=== PATIENT | female | born 1940 | race Caucasian/White ===

== ENCOUNTER 2020-03-11 22:12 | Inpatient (IN) | payer MEDICARE, SELFPAY ==
--- NOTE | 2020-03-11 22:13 | XR_ITS ---
WS: [id number] PORTABLE CHEST HISTORY: sob COMPARISON: 09/22/2018 Minimal interstitial thickening at the LEFT lung base. There is an adjacent lobulated calcification a long the LEFT diaphragmatic surface. No pneumonia. Normal vasculature. No pleural effusion or pneumot horax. Cardiac size: Mildly enlarged cardiac silhouette. Mediastinum/Aorta: Normal mediastinum. No osseous abnormality seen. XR/XR chest 1V portable [id number] IMPRESSION: No acute cardiopulmonary disease. No pneumonia.
[2020-03-11 22:23] VITALS: BP 162/73; PULSE 80; RESP 19; TEMP 37.1; O2SAT 96; BMI 28.3
--- NOTE | 2020-03-11 22:36 | W.ED.COVID ---
HPI - COVID General: Chief Complaint: COVID symptoms Stated Complaint: covid symptoms Time Seen by Provider: 03/11/20 22:13 Triage information: Has fever, cough or shortness of breath. Exposure to COVID + person last 14 days History of Present Illness: HPI Narrative: 79-year-old female patient presents via EMS due to weakness. Spouse confirmed Covid positive several days ago. She reports onset of Covid symptoms x3 days. Reports nausea vomiting, cough congestion and fever, highest was 101.3. States Tylenol does help reduce fever. She reports she can no longer take care of herself and her . MD complaint: reported COVID exposure Prior covid testing: yes, results known (negative 8 days ago) Prior testing date: 03/03/20 COVID 19 common symptoms: positive fever(s), chills, cough, productive cough, dyspnea, fatigue, body aches, nasal congestion, nausea, vomiting and diarrhea; negative headache(s) COVID 19 other sytmptoms: negative chest pain Onset (ago): day(s) (3) Severity: moderate and rapidly worsening Treatment prior to arrival: acetaminophen and ibuprofen COVID Results: SARS-CoV-2 Antigen (Rapid) Positive (Negative) H 03/11/20 23:00 03/11/20 Review of Systems General: Reports: 10 or more systems reviewed and unremarkable except in HPI and below Const: Reports: fever(s), chills, body aches, change in appetite, fatigue and malaise Eyes: Denies: change in vision, blurry vision, eye discomfort, eye redness or yellow eyes ENMT: Reports: nasal discharge, nasal congestion, nasal obstruction and post nasal drip; Denies: uvular edema, hoarseness or halitosis Card: Reports: lightheadedness and dyspnea on exertion; Denies: chest pain, palpitations, irregular heart rhythm, edema or swelling of feet/ankles Resp: Reports: dyspnea, productive cough and chest congestion GI: Reports: nausea, vomiting and diarrhea; Denies: abdominal pain, constipation, GI cramping or pain on defecation : Denies: difficulty voiding, dysuria, urinary urgency or urinary incontinence Musc: Reports: muscle weakness; Denies: neck pain or back pain Skin/Breast: Denies: rash, pruritus, erythema or changing lesions Neuro: Reports: difficulty walking; Denies: headache(s), weakness in extremities or behavioral changes Psych: Denies: anxiety or depression Kamran/Lymph: Denies: easy bruising PFSH ED PFSH: Medical History No pertinent past medical history Surgical History H/O knee surgery H/O: hysterectomy S/P cholecystectomy S/P tonsillectomy Family History (Updated 03/12/20 @ 04:33 by Ab Westbrook MD) Other Family history non-contributory Social History Smoking and tobacco status: never smoked Alcohol intake: never Substance/Drug Use: never Household members: spouse Housing: House Physical Exam Const: COMMON NORMALS: average body habitus, patient oriented x3, no limitations, alert and well nourished EXAM LIMITATIONS: other limitations (ill appearing) GENERAL APPEARANCE: cooperative, well kempt, well developed, lethargic, ill appearing and well hydrated; not comfortable, not in distress, not anxious and not frail appearing NUTRITIONAL APPEARANCE: thin ORIENTATION/CONSCIOUSNESS: Yes awake, Yes oriented to person, Yes oriented to place, Yes oriented to time and Yes lethargic HENMT: COMMON NORMALS: normocephalic, atraumatic, hearing grossly normal bilaterally, Normal external nose present and Normal nasal mucous membranes and turbinates present HEAD & SCALP: normal to inspection, normocephalic and atraumatic FACE & SINUS: normal facial exam, sinuses nontender and face symmetric NOSE: Normal external nose present and Normal nasal mucous membranes and turbinates present MOUTH: moist mucous membranes abnormal Details: cracked THROAT: uvula midline; no uvular edema Eye: COMMON NORMALS: Equal, round and reactive pupils present, EOMs intact bilaterally and conjunctivae normal GENERAL EYE: appearance normal, both eyes and all related structures ALIGNMENT: Yes alignment normal EYELID: eyelids normal CONJUNCTIVA: Yes conjunctivae normal PUPIL: Yes Equal, round and reactive pupils present Neck/C-Spine: COMMON NORMALS: full ROM and no lymphadenopathy GENERAL: Yes normal visual inspection and Yes trachea midline CERVICAL SPINE: Yes cervical ROM normal Lymph: LYMPHATIC: no lymphadenopathy noted Chest: COMMONS NORMALS: normal inspection of the chest and normal palpation of entire chest wall Resp: COMMON NORMALS: normal respiratory effort and No use of accessory muscles EFFORT & INSPECTION: Yes able to speak in complete sentences and No paradoxical thoraco-abdominal movements AUSCULTATION: rhonchi, wheezes and diminished lung sounds Cardio: COMMON NORMALS: regular rate, regular rhythm, S1 normal heart sound present, S2 normal heart sound present and Peripheral pulses 2+ throughout RATE: regular rate RHYTHM: regular rhythm HEART SOUNDS: S1 normal heart sound present and S2 normal heart sound present PERIPHERAL PULSES: Peripheral pulses 2+ throughout GI: COMMON NORMALS: Normal to inspection, nondistended, normoactive bowel sounds present, Soft to palpation and non-tender INSPECTION: Yes normal to inspection PALPATION: Yes Soft to palpation : COMMON NORMALS: Yes no CVA tenderness BLADDER/KIDNEY EXAM: Yes no CVA tenderness Back/Pelvis: COMMON NORMALS: no CVA tenderness, thoracic and lumbar spine normal to inspection, no thoracic nor lumbar tenderness and thoraco-lumbar ROM normal Extremity: COMMON NORMALS: normal to inspection and capillary refill normal Neuro: COMMON NORMALS: patient oriented x3 and no focal motor deficits SENSORIUM/ORIENTATION: Yes alert, Yes oriented to person, Yes oriented to place, Yes oriented to time and Yes lethargic Psych: COMMON NORMALS: mental status grossly normal, Normal thought process present and cooperative APPEARANCE: Yes well kempt ACTIVITY/MOTOR BEHAVIOR: Yes appropriate eye contact THOUGHT PROCESS: Normal thought process present Skin: COMMON NORMALS: no rashes or lesions noted and turgor normal GENERAL SKIN EXAM: no rashes or lesions noted and turgor normal Course ED course: 79-year-old female patient presents to the emergency department with Covid symptoms x3 days. Her spouse is tested positive and is also here in the ED for evaluation as well. She reports has become so weak she can no longer take care of herself or her spouse. States contact of illness from the daughter who tested positive. O2 saturation 90 to 92% on room air here in the ED. She continues to express weakness and continued not feeling well. She is received a liter of normal saline here in the ED. D-dimer slightly elevated and CTA chest currently pending. Spoke with Dr. Westbrook who agrees to care for patient as hospitalist role. Case discussed with Dr. Crain. No further orders. Consultations: Consultation #1: Dr Westbrook, history of present illness and serology, radiology results discussed. Agrees for hospitalist care as patient will need strengthening and hydration due to Covid illness. Time: 03:40 Vital Signs: Vital signs: Vital Signs Temperature 98.1 F 03/15/20 13:47 Pulse Rate 59 L 03/15/20 14:00 Respiratory Rate 23 H 03/15/20 14:00 Blood Pressure 123/61 03/15/20 14:00 Pulse Oximetry 93 03/15/20 14:00 MDM - COVID Lab Data: Labs: Lab Results 03/11/20 03/11/20 03/11/20 Range/Units 00:05 00:05 01:15 WBC 6.8 (4.0-10.0) 10^3/ uL RBC 4.67 (4.1-5.3) 10^6/u L Hgb 13.2 (11.5-15.3) g/dL Hct 41.8 (37.0-47.0) % MCV 89.5 (81-99) fL MCH 28.3 (28.0-34.0) pg MCHC 31.6 (30.0-36.0) g/dL RDW 13.3 (12.1-15.1) % Plt Count 177 (130-400) 10^3/c mm MPV 9.2 (7.4-10.4) fL Neut % (Auto) 79.6 % Lymph % (Auto) 17.1 % [place] % (Auto) 2.9 % Eos % (Auto) 0.0 % Baso % (Auto) 0.1 % Neut # (Auto) 5.44 (1.8-7.7) 10^3/u L Lymph # (Auto) 1.2 (0.8-4.8) 10^3/u L [place] # (Auto) 0.2 (0.2-0.9) 10^3/u L Eos # (Auto) 0.0 (0.0-0.8) 10^3/u L Baso # (Auto) 0.0 (0.0-0.1) 10^3/u L Nucleated RBC % (a uto) 0 % Nucleated RBCs # 0.0 /100WBC Fibrinogen 430 (174-498) mg/dL D-Dimer 0.99 H (0-0.59) ug/mIFE U Specimen Type Sample Site ABG pH (7.35-7.45) ABG pCO2 (35-45) mmHg ABG pO2 (80.0-100.0) mmH g ABG HCO3 (22-26) mmol/L ABG Base Excess (-2.0-2.0) mmol/ L Jean Test Hematocrit (37-47) % O2 Delivery Device O2 Liters/Min % FiO2 % Sales Support Coordinator ID Sodium 131 L (136-145) mmol/L Potassium 3.9 (3.5-5.1) mmol/L Chloride 96 L (98-107) mmol/L Carbon Dioxide 26 (22-29) mmol/L Anion Gap 12.9 (5-19) BUN 12 (8-23) mg/dL Creatinine 0.7 (0.5-0.9) mg/dL GFR Calculation Not Reportable Glucose 120 H (65-115) mg/dL Calculated Osmolal ity 273 L (285-295) mOsm/k g Lactic Acid (0.5-2.2) mmol/L Calcium 8.3 L (8.5-10.5) mg/dL Total Bilirubin 0.2 (0.15-1.2) mg/dL AST 17 (0-32) U/L ALT 12 (0-33) U/L Alkaline Phosphata se 60 (35-105) IU/L C-Reactive Protein 9.4 H (0.0-4.9) mg/L NT-Pro-B Natriuret Pep 77 (0-450) pg/mL Total Protein 6.6 (6.6-8.7) g/dL Albumin 3.6 (3.5-5.2) g/dL Globulin 3.0 (1.3-4.6) g/dL Procalcitonin (0-0.5) ng/mL Urine Color (Yellow) Urine Appearance (CLEAR) Urine pH (5-7) Ur Specific Gravit y (1.005-1.030) Urine Protein (Negative) Urine Glucose (UA) (Normal) Urine Ketones (Negative) Urine Blood (Negative) Urine Nitrate (Negative) Urine Bilirubin (Negative) Urine Urobilinogen (Negative) mg/dL Ur Leukocyte Sophie ase (Negative) SARS-CoV-2 Ag (Rap id) (Negative) 03/11/20 03/11/20 03/11/20 Range/Units 01:15 22:13 22:39 WBC (4.0-10.0) 10^3/ uL RBC (4.1-5.3) 10^6/u L Hgb (11.5-15.3) g/dL Hct (37.0-47.0) % MCV (81-99) fL MCH (28.0-34.0) pg MCHC (30.0-36.0) g/dL RDW (12.1-15.1) % Plt Count (130-400) 10^3/c mm MPV (7.4-10.4) fL Neut % (Auto) % Lymph % (Auto) % [place] % (Auto) % Eos % (Auto) % Baso % (Auto) % Neut # (Auto) (1.8-7.7) 10^3/u L Lymph # (Auto) (0.8-4.8) 10^3/u L [place] # (Auto) (0.2-0.9) 10^3/u L Eos # (Auto) (0.0-0.8) 10^3/u L Baso # (Auto) (0.0-0.1) 10^3/u L Nucleated RBC % (a uto) % Nucleated RBCs # /100WBC Fibrinogen (174-498) mg/dL D-Dimer (0-0.59) ug/mIFE U Specimen Type Arterial Sample Site Brachial, right ABG pH 7.44 (7.35-7.45) ABG pCO2 40.3 (35-45) mmHg ABG pO2 61.7 L (80.0-100.0) mmH g ABG HCO3 27.2 H (22-26) mmol/L ABG Base Excess 2.8 H (-2.0-2.0) mmol/ L Jean Test N/a Hematocrit 40.2 (37-47) % O2 Delivery Device Nc O2 Liters/Min 2.0 % FiO2 28.0 % Sales Support Coordinator ID Jlg Sodium (136-145) mmol/L Potassium (3.5-5.1) mmol/L Chloride (98-107) mmol/L Carbon Dioxide (22-29) mmol/L Anion Gap (5-19) BUN (8-23) mg/dL Creatinine (0.5-0.9) mg/dL GFR Calculation Glucose (65-115) mg/dL Calculated Osmolal ity (285-295) mOsm/k g Lactic Acid 0.9 (0.5-2.2) mmol/L Calcium (8.5-10.5) mg/dL Total Bilirubin (0.15-1.2) mg/dL AST (0-32) U/L ALT (0-33) U/L Alkaline Phosphata se (35-105) IU/L C-Reactive Protein (0.0-4.9) mg/L NT-Pro-B Natriuret Pep (0-450) pg/mL Total Protein (6.6-8.7) g/dL Albumin (3.5-5.2) g/dL Globulin (1.3-4.6) g/dL Procalcitonin (0-0.5) ng/mL Urine Color (Yellow) Urine Appearance (CLEAR) Urine pH (5-7) Ur Specific Gravit y (1.005-1.030) Urine Protein (Negative) Urine Glucose (UA) (Normal) Urine Ketones (Negative) Urine Blood (Negative) Urine Nitrate (Negative) Urine Bilirubin (Negative) Urine Urobilinogen (Negative) mg/dL Ur Leukocyte Sophie ase (Negative) SARS-CoV-2 Ag (Rap id) (Negative) 03/11/20 03/12/20 03/12/20 Range/Units 23:00 01:15 03:41 WBC (4.0-10.0) 10^3/ uL RBC (4.1-5.3) 10^6/u L Hgb (11.5-15.3) g/dL Hct (37.0-47.0) % MCV (81-99) fL MCH (28.0-34.0) pg MCHC (30.0-36.0) g/dL RDW (12.1-15.1) % Plt Count (130-400) 10^3/c mm MPV (7.4-10.4) fL Neut % (Auto) % Lymph % (Auto) % [place] % (Auto) % Eos % (Auto) % Baso % (Auto) % Neut # (Auto) (1.8-7.7) 10^3/u L Lymph # (Auto) (0.8-4.8) 10^3/u L [place] # (Auto) (0.2-0.9) 10^3/u L Eos # (Auto) (0.0-0.8) 10^3/u L Baso # (Auto) (0.0-0.1) 10^3/u L Nucleated RBC % (a uto) % Nucleated RBCs # /100WBC Fibrinogen (174-498) mg/dL D-Dimer (0-0.59) ug/mIFE U Specimen Type Sample Site ABG pH (7.35-7.45) ABG pCO2 (35-45) mmHg ABG pO2 (80.0-100.0) mmH g ABG HCO3 (22-26) mmol/L ABG Base Excess (-2.0-2.0) mmol/ L Jean Test Hematocrit (37-47) % O2 Delivery Device O2 Liters/Min % FiO2 % Sales Support Coordinator ID Sodium (136-145) mmol/L Potassium (3.5-5.1) mmol/L Chloride (98-107) mmol/L Carbon Dioxide (22-29) mmol/L Anion Gap (5-19) BUN (8-23) mg/dL Creatinine (0.5-0.9) mg/dL GFR Calculation Glucose (65-115) mg/dL Calculated Osmolal ity (285-295) mOsm/k g Lactic Acid (0.5-2.2) mmol/L Calcium (8.5-10.5) mg/dL Total Bilirubin (0.15-1.2) mg/dL AST (0-32) U/L ALT (0-33) U/L Alkaline Phosphata se (35-105) IU/L C-Reactive Protein (0.0-4.9) mg/L NT-Pro-B Natriuret Pep (0-450) pg/mL Total Protein (6.6-8.7) g/dL Albumin (3.5-5.2) g/dL Globulin (1.3-4.6) g/dL Procalcitonin 0.07 (0-0.5) ng/mL Urine Color Yellow (Yellow) Urine Appearance Clear (CLEAR) Urine pH 5 (5-7) Ur Specific Gravit y 1.015 (1.005-1.030) Urine Protein Neg (Negative) Urine Glucose (UA) Norm (Normal) Urine Ketones 1+ H (Negative) Urine Blood Neg (Negative) Urine Nitrate Negative (Negative) Urine Bilirubin Neg (Negative) Urine Urobilinogen Norm (Negative) mg/dL Ur Leukocyte Sophie ase Negative (Negative) SARS-CoV-2 Ag (Rap id) Positive H (Negative) 03/13/20 Range/Units 03:45 WBC (4.0-10.0) 10^3/ uL RBC (4.1-5.3) 10^6/u L Hgb (11.5-15.3) g/dL Hct (37.0-47.0) % MCV (81-99) fL MCH (28.0-34.0) pg MCHC (30.0-36.0) g/dL RDW (12.1-15.1) % Plt Count (130-400) 10^3/c mm MPV (7.4-10.4) fL Neut % (Auto) % Lymph % (Auto) % [place] % (Auto) % Eos % (Auto) % Baso % (Auto) % Neut # (Auto) (1.8-7.7) 10^3/u L Lymph # (Auto) (0.8-4.8) 10^3/u L [place] # (Auto) (0.2-0.9) 10^3/u L Eos # (Auto) (0.0-0.8) 10^3/u L Baso # (Auto) (0.0-0.1) 10^3/u L Nucleated RBC % (a uto) % Nucleated RBCs # /100WBC Fibrinogen (174-498) mg/dL D-Dimer (0-0.59) ug/mIFE U Specimen Type Sample Site ABG pH (7.35-7.45) ABG pCO2 (35-45) mmHg ABG pO2 (80.0-100.0) mmH g ABG HCO3 (22-26) mmol/L ABG Base Excess (-2.0-2.0) mmol/ L Jean Test Hematocrit (37-47) % O2 Delivery Device O2 Liters/Min % FiO2 % Sales Support Coordinator ID Sodium (136-145) mmol/L Potassium (3.5-5.1) mmol/L Chloride (98-107) mmol/L Carbon Dioxide (22-29) mmol/L Anion Gap (5-19) BUN (8-23) mg/dL Creatinine (0.5-0.9) mg/dL GFR Calculation Glucose (65-115) mg/dL Calculated Osmolal ity (285-295) mOsm/k g Lactic Acid (0.5-2.2) mmol/L Calcium (8.5-10.5) mg/dL Total Bilirubin (0.15-1.2) mg/dL AST (0-32) U/L ALT (0-33) U/L Alkaline Phosphata se (35-105) IU/L C-Reactive Protein 11.3 H (0.0-4.9) mg/L NT-Pro-B Natriuret Pep (0-450) pg/mL Total Protein (6.6-8.7) g/dL Albumin (3.5-5.2) g/dL Globulin (1.3-4.6) g/dL Procalcitonin (0-0.5) ng/mL Urine Color (Yellow) Urine Appearance (CLEAR) Urine pH (5-7) Ur Specific Gravit y (1.005-1.030) Urine Protein (Negative) Urine Glucose (UA) (Normal) Urine Ketones (Negative) Urine Blood (Negative) Urine Nitrate (Negative) Urine Bilirubin (Negative) Urine Urobilinogen (Negative) mg/dL Ur Leukocyte Sophie ase (Negative) SARS-CoV-2 Ag (Rap id) (Negative) COVID Results: SARS-CoV-2 Antigen (Rapid) Positive (Negative) H 03/11/20 23:00 03/11/20 Discharge Plan Discharge Admit Provider: Ab Westbrook Condition: Stable Discharge Orders: Discharge Order (Routine); Ordered 03/15/20 Ordered By: Yogi Bledsoe Discharge Diet: Usual diet Discharge Activity: Increase activity as tolerated Coding Level of Care Code ED Bearingizer for Chg Fwd Exam Comprehensive
[2020-03-11] MEDS: ondansetron 2 mg/ML SDV 2 mL 4 MG IVP (22:41)
[2020-03-11] MEDS: sodium chloride 0.9% 500 ML 999 ML IV (22:41)
[2020-03-11 22:49] LABS: ABG PCO2 40.3 mmHg (35-45); ABG PH Result 7.44 (7.35-7.45); Arterial Blood Gas Hematocrit 40.2 % (37-47); Base Excess ABG 2.8 mmol/L (-2.0-2.0); Blood Gas Sample Site Brachial, right; Blood Gas Sample Type Arterial; HCO3 ABG 27.2 mmol/L (22-26); Oxygen Device NC; PO2 ABG 61.7 mmHg (80.0-100.0)
--- NOTE | 2020-03-11 22:51 | ECG_ITS ---
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 Measurements Intervals [place] Rate: 79 P: 22 MA: 181 QRS: -31 QRSD: 97 T: 65 QT: 373 QTc: 429 Interpretive Statements SINUS RHYTHM MARKED LEFT AXIS DEVIATION [QRS AXIS < -30] LOW QRS VOLTAGE IN PRECORDIAL LEADS [QRS DEFLECTION < 1.0 mV IN CHEST LEADS] POSSIBLE ANTERIOR MYOCARDIAL INFARCTION [30 ms Q WAVE IN V3/V4, OR R < 0.2 mV IN V4], OF INDETERMINATE AGE Compared to ECG 09/22/2018 11:50:36 Left-axis deviation now present Low QRS voltage now present Myocardial infarct finding now present First degree AV block no longer present Electronically Signed On 03-12-2020 22:52:39 WIRE PULLER by Gladys Edouard M.D. [id number]
[2020-03-11 23:04] VITALS: O2SAT 94
[2020-03-11 23:37] VITALS: BP 172/67; PULSE 80; RESP 18; O2SAT 93
[2020-03-11 23:54] LABS: SARS Covid-2 Antigen Positive (Negative)
[2020-03-12] VITALS (111 sets, daily range): BP systolic 113–167; BP diastolic 45–69; PULSE 61–90; RESP 13–29; TEMP 36.2–37.2; O2SAT 88–98
[2020-03-12 01:27] LABS: Basophils % 0.1 %; Hematocrit 41.8 % (37.0-47.0); Hemoglobin 13.2 g/dL (11.5-15.3); Lymphocytes # 1.2 10^3/uL (0.8-4.8); Lymphocytes % 17.1 %; Mean Corpuscular HGB Conc 31.6 g/dL (30.0-36.0); Mean Corpuscular Hemoglobin 28.3 pg (28.0-34.0); Mean Corpuscular Volume 89.5 fL (81-99); Mean Platelet Volume 9.2 fL (7.4-10.4); Monocytes # 0.2 10^3/uL (0.2-0.9); Monocytes % 2.9 %; Neutrophils # 5.44 10^3/uL (1.8-7.7); Neutrophils % 79.6 %; Nucleated Red Blood Cells % 0 %; Platelet Count 177 10^3/cmm (130-400); Red Blood Count 4.67 10^6/uL (4.1-5.3); Red Cell Distribution Width 13.3 % (12.1-15.1); White Blood Count 6.8 10^3/uL (4.0-10.0)
[2020-03-12 01:56] LABS: Lactic Sepsis W/Reflex 0.9 mmol/L (0.5-2.2)
[2020-03-12 02:05] LABS: Alanine Aminotransferase 12 U/L (0-33); Albumin Level 3.6 g/dL (3.5-5.2); Alkaline Phosphatase 60 IU/L (35-105); Aspartate Amino Transferase 17 U/L (0-32); Blood Urea Nitrogen 12 mg/dL (8-23); C Reactive Protein 9.4 mg/L (0.0-4.9); Calcium 8.3 mg/dL (8.5-10.5); Carbon Dioxide 26 mmol/L (22-29); Chloride 96 mmol/L (98-107); Glucose 120 mg/dL (65-115); NT Pro B Type Natriuretic Pept 77 pg/mL (0-450); Osmolality Calculated 273 mOsm/kg (285-295); Sodium 131 mmol/L (136-145); Total Bilirubin 0.2 mg/dL (0.15-1.2); Total Protein 6.6 g/dL (6.6-8.7)
[2020-03-12 02:07] LABS: Anion Gap 12.9 (5-19); Potassium 3.9 mmol/L (3.5-5.1)
[2020-03-12] MEDS: acetaminophen 500 mg Tablet 1000 MG PO (02:33)
[2020-03-12 02:35] LABS: Slide Review Slide Review Perform
[2020-03-12] MEDS: sodium chloride 0.9% 500 ML 999 ML IV (02:43)
[2020-03-12 03:35] LABS: D Dimer 0.99 ug/mIFEU (0-0.59)
--- NOTE | 2020-03-12 03:39 | CTR_ITS ---
PROCEDURE INFORMATION: Exam: CT Angiography Chest With Contrast Exam date and time: 03/12/2020 3:53 AM Age: 79 years old Clinical indication: Abnormal findings; Abnormal diagnostic tests; Elevated d-dimer; Patient HX: Elevated d dimer. Covid +; Additional info: Covid - elevated d dimer TECHNIQUE: Imaging protocol: Computed tomographic angiography of the chest with intravenous contrast. 3D rendering (Not supervised by radiologist): MIP and/or 3D reconstructed images were created by the technologist. Radiation optimization: All CT scans at this facility use at least one of these dose optimization techniques: automated exposure control; mA and/or kV adjustment per patient size (includes targeted exams where dose is matched to clinical indication); or iterative reconstruction. Contrast material: OMNI 350; Contrast volume: 95 ml; Contrast route: INTRAVENOUS (IV); COMPARISON: CR XR chest 1V portable [id number] 03/11/2020 10:19 PM RADIATION DOSE METRICS: Total DLP (mGy-cm): 1045 FINDINGS: Pulmonary arteries: Normal. No pulmonary emboli. Aorta: Unremarkable. No aortic aneurysm. No aortic dissection. Lungs: Bilateral scattered ground-glass infiltrates are present. A tiny 0 point 4 cm nodule is seen in the right lower lobe image 33.5. Pleural space: Unremarkable. No pneumothorax. No pleural effusion. Heart: Unremarkable. No cardiomegaly. No pericardial effusion. Lymph nodes: Bilateral prominent hilar lymph nodes are seen most likely reactive. Bones/joints: Unremarkable. No acute fracture. Soft tissues: Unremarkable. CT/CT angio chest PE protcl [id number] IMPRESSION: 1. Negative for pulmonary embolism. Negative for aortic aneurysm or dissection. 2. Bilateral scattered ground-glass infiltrates are seen. COVID-19 testing and follow-up is suggested. 3. Bilateral hilar prominent lymph nodes most likely reactive. 4. A tiny nodule in the right lower lobe as described. 5. For patients at low risk (minimal or absent history of smoking and of other known risk factors), no routine follow-up is indicated. For patients at high risk (history of smoking or of other known risk factors), consider optional CT Chest at 12 months. (Reference: Carolyn) REFERENCES: Carolyn Romero et al. Guidelines for Management of Incidental Pulmonary Nodules Detected on CT Images: From the Fleischner Society 2017. Radiology. 2017;284(1):228-243. Radiation Dose CTDIVOL = (mGy): DLP = 1045 (mGy-cm)
[2020-03-12 03:55] LABS: Add Urine Microscopic? NO
--- NOTE | 2020-03-12 03:57 | P.HP_ITS ---
Providers/Chief Complaint Primary Care Provider: Franco Kaminski MD Chief Complaint: covid symptoms History of Present Illness Jewell Villalta is a 79 year old female without significant past medical history came in with chief complaint of worsening weakness. Patient is stating that her symptoms started 1 week ago when her tested positive with COVID-19 pneumonia. She has been experiencing diarrhea, low-grade fever 99.1, she also experienced 1-2 episodes of emesis today. She is feeling extremely tired and lethargic not able to care for herself or her asked why she is in the hospital. EMS brought her on 2 L nasal cannula but she has been saturating well on room air. Afebrile, high D-dimer, CT has been requested, mildly high CRP, CBC BMP unremarkable, Covid antigen positive. Review of Systems Const: Reports: chills, body aches, change in weight, fatigue and malaise; Denies: fever(s) Eyes: Denies: change in vision ENMT: Denies: throat pain Card: Denies: chest pain Resp: Denies: dyspnea GI: Denies: abdominal pain : Denies: flank pain or urinary frequency Musc: Denies: neck pain Skin/Breast: Denies: rash Neuro: Denies: headache(s) Psych: Denies: anxiety Endo: Denies: polyuria Kamran/Lymph: Denies: easy bruising All/Imm: Denies: urticaria Medications/Allergies Allergies Allergy/AdvReac Type Severity Reaction Status Date / Time No Known Allergies Allergy Verified 03/11/20 22:29 PFSH Acute PFSH: Medical History No pertinent past medical history Surgical History H/O knee surgery H/O: hysterectomy S/P cholecystectomy S/P tonsillectomy Family History (Updated 03/12/20 @ 04:33 by Ab Westbrook MD) Other Family history non-contributory Social History Smoking and tobacco status: never smoked Alcohol intake: never Substance/Drug Use: never Household members: spouse Housing: House Vitals/I&O/Wt Last Vital Signs Temp 98.7 F 12/16/20 22:23 Pulse 67 03/12/20 03:40 Resp 15 03/12/20 03:40 BP 133/58 03/12/20 03:40 Pulse Ox 92 03/12/20 03:40 03/11/20 03/11/20 03/12/20 14:59 22:59 06:59 Intake Total 1000 / 1000 Balance 1000 / 1000 Weight last 48 hrs Weight 72.575 kg Physical Exam Narrative: EXAM NARRATIVE: elderly female currently saturating well on room air Very lethargic and drowsy Patient just came back from CTA Not endorsing any active chest pain or shortness of breath S1, S2 no murmur appreciated no signs of heart failure Abdomen soft nontender bowel sound present No acute respiratory distress bilateral breath sounds without adventitious rhonchi or crackles No neurological deficit EOMI, PERRLA Awake alert oriented x3 No lower extremity edema gangrene or ulcer Data : 03/11/20 00:05 03/11/20 00:05 Micro: Microbiology 03/11/20 01:15 Blood Culture - Preliminary Blood SPECIMEN COLLECTED 03/11/20 00:45 Blood Culture - Preliminary Blood SPECIMEN COLLECTED A&P Assessment and plan (1) Generalized weakness: Status: Acute (2) COVID-19: Status: Acute Additional A&P Information COVID-19 pneumonia Worsening weakness, afebrile, no signs of sepsis, no signs of consolidation or superimposed infection, high D-dimer, requested CTA Currently saturating well on room air I would not start remdesivir at this point, no signs of cytokine storm, would only use Decadron Monitor inflammatory markers, PT evaluation before discharge, home O2 evaluation before discharge Patient is full code Cardiac diet DVT prophylaxis Lovenox No need of repeating CBC BMP previous blood work was unremarkable Attestations Medical Necessity Statement*: Anticipating discharge in less than 48 hours continued overnight monitoring because of worsening weakness, she was alone her is also admitted in the hospital she is not able to care for self Time Spent in Patient Care: (>than 50% of time spent in counselling and/or direct pt care on unit) . 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
[2020-03-12] MEDS: iohexol 350 mg/mL 100 mL Btl IV (04:04)
[2020-03-12 04:06] LABS: Bilirubin Urine Neg (Negative); Blood Urine Neg (Negative); Glucose Urine UA Norm (Normal); Ketones Urine 1+ (Negative); Leukocyte Esterase Urine Negative (Negative); Nitrate Urine Negative (Negative); Protein Urine Neg (Negative); Specific Gravity, Urine 1.015 (1.005-1.030); Urine Appearance Clear (CLEAR); Urine Color Yellow (Yellow); Urobilinogen Urine Norm (Negative); pH Urine 5 (5-7)
[2020-03-12 04:21] LABS: Fibrinogen 430 mg/dL (174-498)
--- NOTE | 2020-03-12 06:28 | PC.NURSE ---
Patient received from ED staff at 0600. Patient brought down in wheelchair. Patient transferred to bed by herself with stand by assistance. patient on room air. patient came with belongings which were placed at bedside. patient given ice water by nurse and adjusted in bed for comfort. no other needs at this time.
[2020-03-12] MEDS: enoxaparin 40 mg/0.4 mL Syringe SUBCUT (06:42)
[2020-03-12 07:20] LABS: Procalcitonin 0.07 ng/mL (0-0.5)
--- NOTE | 2020-03-12 09:13 | PM.PN ---
Subjective Subjective: Interval history: Patient denies shortness of breath or chest pain this morning. Reports being generally weak. Reports that she has been taking care of her who is also ill with COVID-19 infection. She saturating 92% this morning on room air. She has typical COVID-19 imaging suggestive of pneumonia. She denies cough. She denies chest pain or abdominal pain. Reports that she is eating okay but on exam does appear dry. Vitals/I&O/Wt Last Vital Signs Temp 98.5 F 03/12/20 06:00 Pulse 62 03/12/20 06:55 Resp 14 03/12/20 06:55 BP 143/59 03/12/20 06:55 Pulse Ox 92 03/12/20 06:55 03/11/20 03/12/20 03/12/20 22:59 06:59 14:59 Intake Total 1000 / 1000 Balance 1000 / 1000 Weight last 48 hrs Weight 72.575 kg Physical Exam Const: COMMON NORMALS: no acute distress and patient oriented x3 Resp: COMMON NORMALS: normal respiratory effort and clear to auscultation bilaterally AUSCULTATION: clear to auscultation bilaterally Cardio: COMMON NORMALS: regular rate, regular rhythm and S2 normal heart sound present RATE: regular rate RHYTHM: regular rhythm HEART SOUNDS: S2 normal heart sound present OTHER: No lower extremity edema GI: COMMON NORMALS: Normal to inspection, nondistended, normoactive bowel sounds present, Soft to palpation and non-tender PALPATION: Yes Soft to palpation Neuro: COMMON NORMALS: patient oriented x3 and no focal motor deficits Data : 03/11/20 00:05 03/11/20 00:05 Micro: Microbiology 03/11/20 01:15 Blood Culture - Preliminary Blood SPECIMEN COLLECTED 03/11/20 00:45 Blood Culture - Preliminary Blood SPECIMEN COLLECTED A&P Assessment and plan (1) Generalized weakness: Status: Acute (2) COVID-19: With evidence of pneumonia on CT scan. Status: Acute (3) Dehydration with hyponatremia: Status: Acute Additional A&P Information COVID-19 pneumonia Worsening weakness, afebrile, no signs of sepsis, no signs of consolidation or superimposed infection, high D-dimer, requested CTA Currently saturating well on room air I would not start remdesivir at this point, no signs of cytokine storm, would only use Decadron Monitor inflammatory markers, PT evaluation before discharge, home O2 evaluation before discharge Patient is full code Cardiac diet DVT prophylaxis Lovenox No need of repeating CBC BMP previous blood work was unremarkable PLAN: Continue dexamethasone and start patient on remdesivir as her O2 sats less than 94% and patient is at risk for worsening. Gentle IV hydration. Physical therapy Attestations Medical Necessity Statement*: Patient with COVID-19 pneumonia requires close inpatient monitoring and treatment. 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
[2020-03-12] MEDS: dexamethasone 4 mg Tablet 6 MG PO (10:39)
[2020-03-12] MEDS: remdesivir 200 MG in sodium chloride 0.9% (100 ml) 100 ML 100 MG IV (15:48)
[2020-03-13] VITALS (23 sets, daily range): BP systolic 105–153; BP diastolic 44–79; PULSE 61–87; RESP 12–31; TEMP 36.8–38.1; O2SAT 88–97
[2020-03-13] MEDS: enoxaparin 40 mg/0.4 mL Syringe SUBCUT (05:23)
[2020-03-13 06:23] LABS: C Reactive Protein 11.3 mg/L (0.0-4.9)
--- NOTE | 2020-03-13 08:11 | PM.PN ---
Subjective Subjective: Interval history: Patient reports feeling generally weak. Denies significant shortness of breath or chest pain. She required 2 L of oxygen during nighttime to keep her oxygenation in the low 90s. Her appetite and oral intake are poor. Vitals/I&O/Wt Last Vital Signs Temp 98.4 F 03/13/20 04:00 Pulse 70 03/13/20 07:00 Resp 25 H 03/13/20 07:00 BP 153/69 03/13/20 07:00 Pulse Ox 90 03/13/20 07:00 03/12/20 03/13/20 03/13/20 22:59 06:59 14:59 Intake Total 580 / 1540 200 / 1740 Output Total 550 / 550 Balance 580 / 1540 -350 / 1190 Weight last 48 hrs Weight 72.575 kg Physical Exam Const: COMMON NORMALS: no acute distress and patient oriented x3 Resp: COMMON NORMALS: normal respiratory effort and clear to auscultation bilaterally AUSCULTATION: clear to auscultation bilaterally Cardio: COMMON NORMALS: regular rate, regular rhythm and S2 normal heart sound present RATE: regular rate RHYTHM: regular rhythm HEART SOUNDS: S2 normal heart sound present OTHER: No lower extremity edema GI: COMMON NORMALS: Normal to inspection, nondistended, normoactive bowel sounds present, Soft to palpation and non-tender PALPATION: Yes Soft to palpation Neuro: COMMON NORMALS: patient oriented x3 and no focal motor deficits Data : 03/11/20 00:05 03/11/20 00:05 Micro: Microbiology 03/11/20 01:15 Blood Culture - Preliminary Blood NEGATIVE TO DATE 03/11/20 00:45 Blood Culture - Preliminary Blood NEGATIVE TO DATE A&P Assessment and plan (1) Generalized weakness: Status: Acute (2) COVID-19: With evidence of pneumonia on CT scan. Status: Acute (3) Dehydration with hyponatremia: Status: Acute (4) Hypoxemia: Present on admission. Status: Acute (5) Pulmonary nodule less than 6 mm in diameter with low risk for malignant neoplasm: Present on admission. Status: Acute Additional A&P Information COVID-19 pneumonia Worsening weakness, afebrile, no signs of sepsis, no signs of consolidation or superimposed infection, high D-dimer, requested CTA Currently saturating well on room air I would not start remdesivir at this point, no signs of cytokine storm, would only use Decadron Monitor inflammatory markers, PT evaluation before discharge, home O2 evaluation before discharge Patient is full code Cardiac diet DVT prophylaxis Lovenox No need of repeating CBC BMP previous blood work was unremarkable PLAN: We will continue dexamethasone and remdesivir. Obtain labs this morning Continue physical therapy. Since patient stay will cross 2 midnights I will change admission status to inpatient. Attestations Medical Necessity Statement*: Patient with COVID-19 pneumonia and hypoxemia requires close inpatient monitoring and treatment. Coding Level of Care Code Acute Animal Assisted Therapist for g [facility] Diagnoses Generalized weakness R53.1 COVID-19 U07.1 Dehydration with hyponatremia E86.0; E87.1 Hypoxemia R09.02 Pulmonary nodule less than 6 mm in diameter with low risk for malignant neoplasm R91.1; Z91.89
[2020-03-13] MEDS: dexamethasone 4 mg Tablet 6 MG PO (09:38)
--- NOTE | 2020-03-13 10:13 | PC.NURSE ---
Assessment Pt resting in bed this shift. Assisted to bedside commode and patient was unsteady. Stated she felt weak and wanted to rest today. Will monitor
[2020-03-13 12:36] LABS: Basophils % 0.1 %; Hematocrit 37.8 % (37.0-47.0); Hemoglobin 12.2 g/dL (11.5-15.3); Lymphocytes # 1.1 10^3/uL (0.8-4.8); Lymphocytes % 13.9 %; Mean Corpuscular HGB Conc 32.3 g/dL (30.0-36.0); Mean Corpuscular Hemoglobin 28.5 pg (28.0-34.0); Mean Corpuscular Volume 88.3 fL (81-99); Mean Platelet Volume 9.5 fL (7.4-10.4); Monocytes # 0.3 10^3/uL (0.2-0.9); Monocytes % 3.3 %; Neutrophils # 6.46 10^3/uL (1.8-7.7); Neutrophils % 82.3 %; Nucleated Red Blood Cells % 0 %; Platelet Count 180 10^3/cmm (130-400); Red Blood Count 4.28 10^6/uL (4.1-5.3); White Blood Count 7.9 10^3/uL (4.0-10.0)
--- NOTE | 2020-03-13 12:53 | PC.NURSE ---
Assessment Patient was transferred to bedside commode and when pt got back in bed she stated she was confused. She is alert and orientated x 4 but states she keeps thinking she is in her bed at home and doesn't know what is going on. Will continue to monitor.
[2020-03-13 13:02] LABS: Alanine Aminotransferase 12 U/L (0-33); Albumin Level 3.4 g/dL (3.5-5.2); Alkaline Phosphatase 50 IU/L (35-105); Blood Urea Nitrogen 11 mg/dL (8-23); Calcium 8.3 mg/dL (8.5-10.5); Carbon Dioxide 27 mmol/L (22-29); Chloride 92 mmol/L (98-107); Globulin 2.6 g/dL (1.3-4.6); Glucose 98 mg/dL (65-115); Magnesium 1.9 mg/dL (1.7-2.3); Osmolality Calculated 271 mOsm/kg (285-295); Sodium 131 mmol/L (136-145); Total Bilirubin 0.2 mg/dL (0.15-1.2)
[2020-03-13 13:09] LABS: Anion Gap 15.9 (5-19); Potassium 3.9 mmol/L (3.5-5.1)
[2020-03-13 13:10] LABS: Aspartate Amino Transferase 21 U/L (0-32)
[2020-03-13] MEDS: remdesivir 100 MG in sodium chloride 0.9% (100 ml) 100 ML IV (17:57)
--- NOTE | 2020-03-13 18:19 | PC.NURSE ---
Change in condition Patient was assisted to bedside commode by this nurse and was attempting to have a bowel movement. During this time the patients heart rate dropped to 42. This nurse called for help and patient was transferred to bed with two nurses and Rt. 2L NC applied. Current pulse rate- 59. o2- 93.
[2020-03-14] VITALS (9 sets, daily range): BP systolic 135–161; BP diastolic 56–99; PULSE 57–68; RESP 14–20; TEMP 36.5–37.4; O2SAT 93–96
[2020-03-14 04:42] LABS: Hematocrit 38.9 % (37.0-47.0); Hemoglobin 12.9 g/dL (11.5-15.3); Lymphocytes # 1.4 10^3/uL (0.8-4.8); Lymphocytes % 20.6 %; Mean Corpuscular HGB Conc 33.2 g/dL (30.0-36.0); Mean Corpuscular Volume 87.4 fL (81-99); Mean Platelet Volume 9.6 fL (7.4-10.4); Monocytes # 0.4 10^3/uL (0.2-0.9); Monocytes % 5.7 %; Neutrophils % 73.4 %; Nucleated Red Blood Cells % 0 %; Platelet Count 203 10^3/cmm (130-400); Red Blood Count 4.45 10^6/uL (4.1-5.3); Red Cell Distribution Width 12.9 % (12.1-15.1); White Blood Count 6.8 10^3/uL (4.0-10.0)
[2020-03-14] MEDS: enoxaparin 40 mg/0.4 mL Syringe SUBCUT (05:17)
[2020-03-14] MEDS: dexamethasone 4 mg Tablet 6 MG PO (08:22)
--- NOTE | 2020-03-14 08:37 | PM.PN ---
Subjective Subjective: Interval history: Patient reports feeling better breathing leo but reports that she continues to be very weak. Reports dry cough only when she tries to move or with deep inspiration. She saturating 93% this morning on 2 L by nasal cannula. Vitals/I&O/Wt Last Vital Signs Temp 99 F 03/14/20 04:00 Pulse 62 03/14/20 04:00 Resp 16 03/14/20 04:00 BP 135/71 03/14/20 04:00 Pulse Ox 94 03/14/20 04:00 Physical Exam Const: COMMON NORMALS: no acute distress and patient oriented x3 Resp: COMMON NORMALS: normal respiratory effort and clear to auscultation bilaterally AUSCULTATION: clear to auscultation bilaterally Cardio: COMMON NORMALS: regular rate, regular rhythm and S2 normal heart sound present RATE: regular rate RHYTHM: regular rhythm HEART SOUNDS: S2 normal heart sound present OTHER: No lower extremity edema GI: COMMON NORMALS: Normal to inspection, nondistended, normoactive bowel sounds present, Soft to palpation and non-tender PALPATION: Yes Soft to palpation Neuro: COMMON NORMALS: patient oriented x3 and no focal motor deficits Data : 03/14/20 03:15 03/13/20 12:10 Micro: Microbiology 03/11/20 01:15 Blood Culture - Preliminary Blood NEGATIVE TO DATE 03/11/20 00:45 Blood Culture - Preliminary Blood NEGATIVE TO DATE A&P Assessment and plan (1) Generalized weakness: Status: Acute (2) COVID-19: With evidence of pneumonia on CT scan. Status: Acute (3) Dehydration with hyponatremia: Status: Acute (4) Hypoxemia: Present on admission. Status: Acute (5) Pulmonary nodule less than 6 mm in diameter with low risk for malignant neoplasm: Present on admission. Status: Acute Additional A&P Information COVID-19 pneumonia Worsening weakness, afebrile, no signs of sepsis, no signs of consolidation or superimposed infection, high D-dimer, requested CTA Currently saturating well on room air I would not start remdesivir at this point, no signs of cytokine storm, would only use Decadron Monitor inflammatory markers, PT evaluation before discharge, home O2 evaluation before discharge Patient is full code Cardiac diet DVT prophylaxis Lovenox No need of repeating CBC BMP previous blood work was unremarkable PLAN: Continue current monitoring and treatment including remdesivir and Decadron and physical therapy. If patient remains stable we will likely be able to dismiss her home tomorrow. Attestations Medical Necessity Statement*: Patient with COVID-19 infection and hypoxemia and generalized weakness requires inpatient monitoring and treatment. 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
[2020-03-14 11:17] LABS: Alanine Aminotransferase 11 U/L (0-33); Albumin Level 3.2 g/dL (3.5-5.2); Alkaline Phosphatase 48 IU/L (35-105); Anion Gap 12.4 (5-19); Aspartate Amino Transferase 18 U/L (0-32); Blood Urea Nitrogen 15 mg/dL (8-23); Calcium 8.4 mg/dL (8.5-10.5); Carbon Dioxide 28 mmol/L (22-29); Chloride 94 mmol/L (98-107); Globulin 2.6 g/dL (1.3-4.6); Glucose 120 mg/dL (65-115); Magnesium 2.1 mg/dL (1.7-2.3); Osmolality Calculated 274 mOsm/kg (285-295); Potassium 3.4 mmol/L (3.5-5.1); Sodium 131 mmol/L (136-145); Total Bilirubin 0.2 mg/dL (0.15-1.2); Total Protein 5.8 g/dL (6.6-8.7)
[2020-03-14] MEDS: remdesivir 100 MG in sodium chloride 0.9% (100 ml) 100 ML IV (17:18)
--- NOTE | 2020-03-14 18:02 | PC.RESP ---
Patient has remained on Room air since around 8 am today. Patient has done well and maintained her oxygen saturations well on room air.
[2020-03-15] VITALS (8 sets, daily range): BP systolic 106–134; BP diastolic 60–66; PULSE 52–78; RESP 15–23; TEMP 36.7; O2SAT 86–100
[2020-03-15 04:30] LABS: Hematocrit 39.5 % (37.0-47.0); Hemoglobin 12.8 g/dL (11.5-15.3); Lymphocytes # 1.4 10^3/uL (0.8-4.8); Lymphocytes % 24.5 %; Mean Corpuscular HGB Conc 32.4 g/dL (30.0-36.0); Mean Corpuscular Hemoglobin 28.1 pg (28.0-34.0); Mean Corpuscular Volume 86.6 fL (81-99); Mean Platelet Volume 9.5 fL (7.4-10.4); Monocytes # 0.3 10^3/uL (0.2-0.9); Monocytes % 5.8 %; Neutrophils # 3.85 10^3/uL (1.8-7.7); Neutrophils % 69.5 %; Nucleated Red Blood Cells % 0 %; Platelet Count 200 10^3/cmm (130-400); Red Blood Count 4.56 10^6/uL (4.1-5.3); White Blood Count 5.5 10^3/uL (4.0-10.0)
[2020-03-15 04:58] LABS: Alanine Aminotransferase 13 U/L (0-33); Albumin Level 3.4 g/dL (3.5-5.2); Alkaline Phosphatase 49 IU/L (35-105); Anion Gap 13.9 (5-19); Aspartate Amino Transferase 18 U/L (0-32); Blood Urea Nitrogen 16 mg/dL (8-23); Calcium 8.5 mg/dL (8.5-10.5); Carbon Dioxide 28 mmol/L (22-29); Chloride 99 mmol/L (98-107); Globulin 2.7 g/dL (1.3-4.6); Glucose 133 mg/dL (65-115); Magnesium 2.3 mg/dL (1.7-2.3); Osmolality Calculated 287 mOsm/kg (285-295); Potassium 3.9 mmol/L (3.5-5.1); Sodium 137 mmol/L (136-145); Total Bilirubin 0.2 mg/dL (0.15-1.2); Total Protein 6.1 g/dL (6.6-8.7)
[2020-03-15] MEDS: enoxaparin 40 mg/0.4 mL Syringe SUBCUT (07:43)
[2020-03-15] MEDS: dexamethasone 4 mg Tablet 6 MG PO (09:26)
--- NOTE | 2020-03-15 12:28 | PM.DCS ---
Discharge Providers Date of Admission: 03/13/20 08:12 Date of Discharge: March 15, 2020 Attending Provider at Admission: Ab Westbrook MD Attending Provider at Discharge: Yogi Bledsoe MD Primary Care Provider: Franco Kaminski MD Diagnoses at Discharge Discharge Diagnosis (1) Generalized weakness: Status: Acute (2) COVID-19: Status: Acute (3) Dehydration with hyponatremia: Status: Acute (4) Hypoxemia: Status: Acute (5) Pulmonary nodule less than 6 mm in diameter with low risk for malignant neoplasm: Status: Acute Reason for Visit Reason for Visit: covid symptoms Hospital Course Hospital Course Patient presented with generalized weakness and dehydration due to COVID-19 with evidence of pneumonia on imaging. She was hypoxic and required oxygen. She was treated with remdesivir and dexamethasone and gradually improved and this morning reports feeling better and strong enough to be dismissed home. We will perform home O2 evaluation as patient will likely require some oxygen for near future. This morning she denies any shortness of breath or chest pain. Physical therapy signed off and patient was able to ambulate in her room. Given her clinical improvement I think it is safe for patient to be dismissed home. I will request giving patient her 2 days remdesivir dose early and will continue dexamethasone for 5 more days. Will prescribe Protonix for GI protection. Patient noted to have pulmonary nodule and I will let Dr. Kaminski to follow-up on that. Physical Exam Const: COMMON NORMALS: no acute distress and patient oriented x3 Resp: COMMON NORMALS: normal respiratory effort OTHER: Very minimal bibasilar Rales. Cardio: COMMON NORMALS: regular rate, regular rhythm and S2 normal heart sound present RATE: regular rate RHYTHM: regular rhythm HEART SOUNDS: S2 normal heart sound present OTHER: No lower extremity edema GI: COMMON NORMALS: Normal to inspection, nondistended, normoactive bowel sounds present, Soft to palpation and non-tender PALPATION: Yes Soft to palpation Neuro: COMMON NORMALS: patient oriented x3 and no focal motor deficits Discharge Data Data Completed and Pending: Completed Studies During Hospitalization Category Date Time Status CT angio chest PE protcl 43274 Urge nt Cat Scan 03/12/20 03:39 Completed XR chest 1V beatriz ble 04998 Stat Exams 03/11/20 22:13 Completed Pending at discharge Category Date Time Status Blood Culture Sta t Lab 03/11/20 01:15 Results Complete Blood Co unt w/Auto AM LABS Lab 03/16/20 04:00 Ordered Comprehensive Met abolic Panel AM LA BS Lab 03/16/20 04:00 Ordered Magnesium AM LABS Lab 03/16/20 04:00 Ordered Labs from last 24 hours 03/15/20 03/15/20 04:14 04:14 WBC 5.5 RBC 4.56 Hgb 12.8 Hct 39.5 MCV 86.6 MCH 28.1 MCHC 32.4 RDW 13.0 Plt Count 200 MPV 9.5 Neut % (Auto) 69.5 Lymph % (Auto) 24.5 Collin % (Auto) 5.8 Eos % (Auto) 0.0 Baso % (Auto) 0.0 Neut # (Auto) 3.85 Lymph # (Auto) 1.4 Collin # (Auto) 0.3 Eos # (Auto) 0.0 Baso # (Auto) 0.0 Nucleated RBC % (a uto) 0 Nucleated RBCs # 0.0 Sodium 137 Potassium 3.9 Chloride 99 Carbon Dioxide 28 Anion Gap 13.9 BUN 16 Creatinine 0.5 GFR Calculation Not Reportable Glucose 133 H Calculated Osmolal ity 287 Calcium 8.5 Magnesium 2.3 Total Bilirubin 0.2 AST 18 ALT 13 Alkaline Phosphata se 49 Total Protein 6.1 L Albumin 3.4 L Globulin 2.7 Vitals: Last Vital Signs Temp 98.1 F 03/15/20 04:00 Pulse 65 03/15/20 10:33 Resp 16 03/15/20 10:33 BP 119/66 03/15/20 10:13 Pulse Ox 92 03/15/20 10:33 Discharge Plan Discharge Patient Disposition: Home Condition: Stable Prescriptions: New pantoprazole [Protonix] 40 mg tablet,delayed release (DR/EC) 40 mg PO DAILY 28 Days RF: 0 dexamethasone 4 mg Tablet 6 mg PO DAILY Qty: 5 RF: 0 Continued meloxicam 15 mg tablet 15 mg PO DAILY PRN (Reason: Pain) RF: 0 amlodipine 2.5 mg tablet 2.5 mg PO DAILY@10 RF: 0 fluoxetine 10 mg capsule 10 mg PO DAILY@10 RF: 0 Discontinued doxycycline hyclate 100 mg capsule 100 mg PO BID@10,16 RF: 0 Discharge Orders: Discharge Order (Routine); Ordered 03/15/20 Ordered By: Yogi Bledsoe Referrals: Franco Kaminski MD [Primary Care Provider] - 4-7 days Discharge Diet: Usual diet Discharge Activity: Increase activity as tolerated Activity Restrictions/Additional Instructions: Please call your doctor or present to emergency department if your condition worsens or you develop diarrhea, lightheadedness, fatigue or see blood in your stool or black stool. 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
[2020-03-15] MEDS: remdesivir 100 MG in sodium chloride 0.9% (100 ml) 100 ML IV (14:04)
--- NOTE | 2020-03-15 17:12 | PC.NURSE ---
Discharge instructions given to patient, home oxygen on and working, prescriptions sent to [facility]. Patient has verbal understanding of instructions. Daughter to pick patient up. Patient wheeled to private vehicle at 1650 by this nurse. Belongings with patient.
--- NOTE | 2020-03-16 17:18 | PC.SOCIAL ---
Follow up call completed. Please see DC planning notes regarding HH and no provider being able to service. Patient indicates doing okay without. She is eating,drinking, ambulating etc. She did get new medications and is taking them. No questions voiced when asked. She does get a little winded when on phone for long time and has had a lot of family calling today. Oxygen is just as needed. She has not made PCP appt yet. She was okay with this nurse scheduling so call will happen tomorrow and evening appt arranged per request. Patient cell number is [phone]. Patient had good care while here. We discussed precautions when going out and wash hands 20 sec each time, etc. She verbalized understanding.
--- NOTE | 2020-03-18 10:59 | PC.SOCIAL ---
Called Dr Kaminski office and spoke with Karen to schedule appt. Not sure if patient is off quarantine yet so Karen will call her and schedule the appt.
== END 2020-03-15 16:50 | disposition home or self-care (01) | DRG 177 ==
LOC: ER 03-12 02:12 → ICU 03-12 04:54
PROVIDERS: Emergency Medicine; Nurse Practitioner Family; Admitting Provider Internal Medicine; Emergency Provider Emergency Medicine; PCP Family Medicine; Visit Provider Internal Medicine
DX: U07.1 COVID-19 (principal); J12.89 Other viral pneumonia; E87.1 Hypo-osmolality and hyponatremia; E86.0 Dehydration; R91.8 Other nonspecific abnormal finding of lung field; R09.02 Hypoxemia
CPT/HCPCS: 12345; 36415; 36600; 71045; 71275; 80053; 81003; 82803; 83605; 83735; 83880; 84145; 85025; 85378; 85384; 86140; 87040; 87426; 93005; 96372; 96375; 97161; 99283; G0378; J1650; J2405; J7040; J8540; Q9967

== ENCOUNTER 2020-03-25 09:06 | Emergency (ER) | payer MEDICARE, SELFPAY ==
[2020-03-25 09:23] VITALS: BP 120/73; PULSE 93; RESP 16; TEMP 37.6; O2SAT 94; BMI 28.3
--- NOTE | 2020-03-25 09:51 | W.ED.COVID ---
HPI - COVID General: Chief Complaint: COVID symptoms Stated Complaint: COVID + (off quarantine but still sick) Time Seen by Provider: 03/25/20 09:40 Triage information: No fever, cough or shortness of breath. Exposure to COVID + person last 14 days History of Present Illness: HPI Narrative: 79-year-old female presents emergency room complaining of general fatigue and some myalgias. Overall she still feels ill. She states she has not been particularly short of breath but did have some continuing temperatures at night generalized muscle aches some upper back pain. She denies any chest pain denies any pain on inspiration. Patient was admitted on 1217 and discharged on 1220. She was discharged home on dexamethasone. Her remains in the viral ICU. MD complaint: known COVID positive Prior testing date: 03/11/20 COVID 19 common symptoms: positive fever(s), fatigue and body aches; negative non-productive cough, productive cough, dyspnea, throat pain, nasal congestion, nausea, vomiting or diarrhea COVID 19 other sytmptoms: negative chest pressure, chest pain, pleuritic pain or requiring oxygen Onset (ago): day(s) Severity: mild Pertinent comorbid conditions: recent hospital stay for same diagnosis Treatment prior to arrival: none COVID Results: SARS-CoV-2 Antigen (Rapid) Positive (Negative) H 03/11/20 23:00 03/11/20 Review of Systems Const: Reports: fever(s), body aches and fatigue ENMT: Denies: throat pain, ear or mastoid pain, nasal discharge or nasal congestion Card: Denies: chest pain Resp: Denies: dyspnea, productive cough or non-productive cough GI: Denies: abdominal pain, nausea, vomiting, hematemesis, coffee ground emesis, diarrhea, constipation, bloating, hematochezia or melena : Denies: flank pain, difficulty voiding, dysuria, urinary frequency or urinary urgency Skin/Breast: Denies: rash or pruritus PFSH ED PFSH: Medical History (Updated 03/25/20 @ 09:55 by Rodolfo Tapia DO) COVID-19 No pertinent past medical history Surgical History H/O knee surgery H/O: hysterectomy S/P cholecystectomy S/P tonsillectomy Family History (Updated 03/12/20 @ 04:33 by Ab Westbrook MD) Other Family history non-contributory Social History Smoking and tobacco status: never smoked Alcohol intake: never Household members: spouse Housing: House Physical Exam Const: COMMON NORMALS: no acute distress GENERAL APPEARANCE: cooperative and comfortable ORIENTATION/CONSCIOUSNESS: Yes awake, Yes oriented to person, Yes oriented to place and Yes oriented to time HENMT: COMMON NORMALS: normocephalic, atraumatic and hearing grossly normal bilaterally HEAD & SCALP: normocephalic and atraumatic Eye: COMMON NORMALS: Equal, round and reactive pupils present, EOMs intact bilaterally, conjunctivae normal and no scleral icterus CONJUNCTIVA: Yes conjunctivae normal PUPIL: Yes Equal, round and reactive pupils present Neck/C-Spine: COMMON NORMALS: no JVD Resp: COMMON NORMALS: normal respiratory effort, No retractions, No use of accessory muscles and clear to auscultation bilaterally AUSCULTATION: clear to auscultation bilaterally Cardio: COMMON NORMALS: no JVD, regular rate, regular rhythm and No murmurs present (Cardio) RATE: regular rate RHYTHM: regular rhythm GI: COMMON NORMALS: Soft to palpation and No hepatosplenomegaly present AUSCULTATION: Yes normoactive bowel sounds PALPATION: Yes Soft to palpation, No Tenderness to palpation present (GI), No Guarding due to palpation present (GI) and Yes No hepatosplenomegaly present Extremity: COMMON NORMALS: normal to inspection, capillary refill normal, no clubbing, cyanosis or edema, no calf tenderness and no pedal edema Neuro: SENSORIUM/ORIENTATION: Yes oriented to person, Yes oriented to place and Yes oriented to time Skin: COMMON NORMALS: no rashes or lesions noted GENERAL SKIN EXAM: no rashes or lesions noted Course Vital Signs: Vital signs: Vital Signs Temperature 99.7 F H 03/25/20 09:23 Pulse Rate 93 03/25/20 09:23 Respiratory Rate 16 03/25/20 09:23 Blood Pressure 120/73 03/25/20 09:23 Pulse Oximetry 94 03/25/20 09:23 MDM - COVID MDM Narrative: Medical decision making narrative: Vital signs stable. Patient tells a low-grade fever. Believe she is still recovering in the sequela of her COVID-19. She not having any chest pain or shortness of breath she has some generalized myalgias and fatigue. At the moment she states even those are mostly resolved. We will go ahead and discharge home no changes at this time continue to monitor with any worsening of symptoms return COVID Results: SARS-CoV-2 Antigen (Rapid) Positive (Negative) H 03/11/20 23:00 03/11/20 Discharge Plan Discharge Patient Disposition: Home Clinical Impression: COVID-19 Condition: Stable Prescriptions: No Action meloxicam 15 mg tablet 15 mg PO DAILY PRN (Reason: Pain) RF: 0 amlodipine 2.5 mg tablet 2.5 mg PO DAILY@10 RF: 0 fluoxetine 10 mg capsule 10 mg PO DAILY@10 RF: 0 dexamethasone 4 mg Tablet 6 mg PO DAILY Qty: 5 RF: 0 Protonix 40 mg tablet,delayed release (DR/EC) 40 mg PO DAILY 28 Days RF: 0 Discharge Orders: Discharge ED (Routine); Ordered 03/25/20 Ordered By: Rodolfo Tapia Referrals: Franco Kaminski MD [Primary Care Provider] - Discharge Diet: Usual diet Discharge Activity: Increase activity as tolerated Activity Restrictions/Additional Instructions: Follow-up with your primary care doctor as previously scheduled. If you have any worsening of symptoms return. Coding Level of Care Code ED Youth Care Professional for Burton Daniel
[2020-03-25 10:22] VITALS: O2SAT 94
== END 2020-03-25 10:21 | disposition home or self-care (01) ==
PROVIDERS: Emergency Provider Family Medicine; PCP Family Medicine
DX: U07.1 COVID-19 (principal)
CPT/HCPCS: 12345; 99281

== ENCOUNTER → 2021-12-14 10:44 | Outpatient (BNVA) | payer MEDICARE, SELFPAY | PROVIDERS: PCP Family Medicine; Visit Provider Nurse Practitioner Family | DX: Z20.822 Contact with and (suspected) exposure to COVID-19 (principal); J02.9 Acute pharyngitis, unspecified; J06.9 Acute upper respiratory infection, unspecified | CPT/HCPCS: 87071; 87426; 87880 ==

== ENCOUNTER → 2022-01-28 10:32 | Outpatient (BNVA) | payer MEDICARE, SELFPAY | PROVIDERS: PCP Family Medicine; Visit Provider Nurse Practitioner Family | DX: J02.9 Acute pharyngitis, unspecified (principal) | CPT/HCPCS: 87880 ==

== ENCOUNTER → 2022-02-23 16:32 | Outpatient (BNVA) | payer MEDICARE, SELFPAY | PROVIDERS: PCP Family Medicine; Visit Provider Nurse Practitioner Family | DX: R39.9 Unspecified symptoms and signs involving the genitourinary system (principal); N39.0 Urinary tract infection, site not specified | CPT/HCPCS: 81000; 87077; 87086; 87184 ==

== ENCOUNTER → 2024-03-25 15:36 | Outpatient (BNVA) | payer MEDICARE, SELFPAY | PROVIDERS: PCP Family Medicine; Visit Provider Family Medicine | DX: I10 Essential (primary) hypertension (principal); R60.9 Edema, unspecified; F32.A Depression, unspecified | CPT/HCPCS: 80053; 83880; 84443; 85025 ==

== ENCOUNTER → 2024-10-02 09:48 | Outpatient (BNVA) | payer MEDICARE, SELFPAY | PROVIDERS: PCP Family Medicine; Visit Provider Family Medicine Adult Medicine | DX: S52.691A Other fracture of lower end of right ulna, initial encounter for closed fracture (principal); S52.501A Unspecified fracture of the lower end of right radius, initial encounter for closed fracture; X58.XXXA Exposure to other specified factors, initial encounter | CPT/HCPCS: 73110 ==

== ENCOUNTER → 2024-10-08 15:32 | Outpatient (BNVA) | payer MEDICARE, SELFPAY | PROVIDERS: PCP Family Medicine; Visit Provider Orthopaedic Surgery | DX: S62.101A Fracture of unspecified carpal bone, right wrist, initial encounter for closed fracture (principal); X58.XXXA Exposure to other specified factors, initial encounter | CPT/HCPCS: 73110 ==

== ENCOUNTER 2024-10-08 16:19 | Outpatient (CLI) | payer MEDICARE, SELFPAY | END 2024-10-08 16:20 | disposition home or self-care (01) | LOC: SPT 16:20 | PROVIDERS: PCP Family Medicine; Visit Provider Orthopaedic Surgery | DX: Z46.89 Encounter for fitting and adjustment of other specified devices (principal); S52.591D Other fractures of lower end of right radius, subsequent encounter for closed fracture with routine healing; X58.XXXD Exposure to other specified factors, subsequent encounter | CPT/HCPCS: 97760; 99203; L3982 ==

== ENCOUNTER → 2024-10-29 14:41 | Outpatient (BNVA) | payer MEDICARE, SELFPAY | PROVIDERS: PCP Family Medicine; Visit Provider Orthopaedic Surgery | DX: S62.101D Fracture of unspecified carpal bone, right wrist, subsequent encounter for fracture with routine healing (principal); X58.XXXD Exposure to other specified factors, subsequent encounter | CPT/HCPCS: 73110; 99024; 99213 ==

== ENCOUNTER → 2024-11-12 14:53 | Outpatient (BNVA) | payer MEDICARE, SELFPAY | PROVIDERS: PCP Family Medicine; Visit Provider Orthopaedic Surgery | DX: S62.101D Fracture of unspecified carpal bone, right wrist, subsequent encounter for fracture with routine healing (principal); X58.XXXD Exposure to other specified factors, subsequent encounter | CPT/HCPCS: 73110; 99024; 99213 ==

== ENCOUNTER → 2024-12-24 13:07 | Outpatient (BNVA) | payer MEDICARE, SELFPAY | PROVIDERS: PCP Family Medicine; Visit Provider Orthopaedic Surgery | DX: S62.101D Fracture of unspecified carpal bone, right wrist, subsequent encounter for fracture with routine healing (principal); X58.XXXD Exposure to other specified factors, subsequent encounter | CPT/HCPCS: 73110; 99213 ==